=== PATIENT | female | born 1980 | race Caucasian/White ===

== ENCOUNTER 2020-03-22 13:47 | Inpatient (IN) | payer MEDICAID, OTHER ==
[~2020-03-22] VITALS: Ht 165.1 cm; Wt 74.0 kg
[2020-03-22] MEDS ORDERED: ARIP2 PO (14:53)
[2020-03-22 15:48] LABS: AMPHET/METH SCREEN,URINE NEGATIVE (NEGATIVE); BARBITURATE SCREEN, URINE NEGATIVE (NEGATIVE); BENZODIAZEPINES SCREEN,URINE NEGATIVE (NEGATIVE); CANNABINOID SCREEN,URINE NEGATIVE (NEGATIVE); COCAINE SCREEN,URINE NEGATIVE (NEGATIVE); METHADONE SCREEN, URINE NEGATIVE (NEGATIVE); OPIATE SCREEN,URINE NEGATIVE (NEGATIVE)
[2020-03-22 16:07] LABS: PHENCYCLIDINE SCREEN,URINE NEGATIVE (NEGATIVE)
[2020-03-22 16:24] LABS: BASOPHILS % (AUTO) 0.7 % (0.0-2.0); EOSINOPHILS % (AUTO) 0.6 % (1.0-6.0); HEMATOCRIT 42.1 % (36-46); HEMOGLOBIN 13.9 g/dL (12.0-16.0); LYMPHOCYTES # (AUTO) 2.8 K/uL (1.0-4.8); LYMPHOCYTES % (AUTO) 35.7 % (22.0-44.0); MEAN CORPUSCULAR HEMOGLOBIN 29.6 pg (26.0-34.0); MEAN CORPUSCULAR HGB CONC 33.1 G/dL (31.0-37.0); MEAN CORPUSCULAR VOLUME 90 fL (80-100); MONOCYTES # (AUTO) 0.5 K/uL (0.1-1.0); MONOCYTES % (AUTO) 6.5 % (2.0-9.0); NEUTROPHILS # (AUTO) 4.4 K/uL (1.8-7.7); NEUTROPHILS % (AUTO) 56.5 % (40.0-70.0); PLATELET COUNT (AUTO) 262 K/uL (150-450); RED CELL DISTRIBUTION WIDTH 12.7 % (11.5-14.5)
[2020-03-22 17:03] LABS: ANION GAP 10 mmol/L (8-16); CALCIUM, TOTAL 9.3 mg/dL (8.8-10.5); CARBON DIOXIDE 26 mmol/L (22-29); CHLORIDE 106 mmol/L (98-107); CREATININE 0.99 mg/dL (0.60-1.30); GLOMERULAR FILTR. RATE CALC > 60 mL/min (>60); GLUCOSE,RANDOM 96 mg/dL (70-110); POTASSIUM 3.9 mmol/L (3.5-5.1); SODIUM SERUM 142 mmol/L (136-145); UREA NITROGEN, BLOOD 17 mg/dL (7-18)
[2020-03-22 17:14] LABS: ALANINE AMINOTRANSFERASE 16 U/L (12-78); ALBUMIN 4.1 g/dL (3.4-5.0); ALKALINE PHOSPHATASE 79 U/L (46-116); ASPARTATE AMINOTRANSFERASE 11 U/L (15-37); BILIRUBIN,TOTAL 0.2 mg/dL (0.1-1.0); HCG,QUANTITATIVE < 1 mIU/mL (0-6)
[2020-03-22] MEDS ORDERED: LORazepam 2 MG TABLET PO ONE (18:00)
[2020-03-22] MEDS ORDERED: HALOPERIDOL 5 MG TABLET PO ONE (18:00)
[2020-03-22] MEDS ORDERED: PNEUMOCOCCAL VACCINE POLYVALENT 0.5 ML VIAL [PPSV23] IM ONE (21:00)
[2020-03-22 21:15] VITALS: BP 131/92
[2020-03-22] MEDS ORDERED: ChlorproMAZINE HCL 25 MG/ML 2 ML AMP IM ONE (22:00)
[2020-03-22] MEDS ORDERED: LORazepam 2 MG/ML VIAL IM ONE (22:00)
[2020-03-23] MEDS ORDERED: MAG HYDROX/AL HYDROX/SIMETH ES 30 ML SUSPENSION UDCUP PO PRN (07:15)
[2020-03-23] MEDS ORDERED: MAGNESIUM HYDROXIDE SUSPENSION 30 ML UDCUP PO PRN (07:15)
[2020-03-23] MEDS ORDERED: DOCUSATE SODIUM 100 MG CAPSULE PO PRN (07:15)
[2020-03-23] MEDS ORDERED: CloNIDine HCL 0.1 MG TABLET PO PRN (07:15)
[2020-03-23] MEDS ORDERED: BENZOCAINE/MENTHOL LOZENGE MM PRN (07:15)
[2020-03-23] MEDS ORDERED: PETROLATUM,WHITE 28 GM JELLY TP PRN (07:15)
[2020-03-23] MEDS ORDERED: BACITRACIN 28.4 GM OINTMENT TP PRN (07:15)
[2020-03-23] MEDS ORDERED: IBUPROFEN 600 MG TABLET PO PRN (07:15)
[2020-03-23] MEDS ORDERED: LOPERAMIDE HCL 2 MG CAPSULE PO PRN (07:15)
[2020-03-23] MEDS ORDERED: ALBUTEROL SULFATE HFA 90 MCG/PUFF 8 GM INHALER IH PRN (07:15)
[2020-03-23] MEDS ORDERED: OMEPRAZOLE 20 MG CAPSULE PO PRN (07:15)
[2020-03-23] MEDS ORDERED: ONDANSETRON HCL 4 MG TABLET PO PRN (07:15)
[2020-03-23 08:12] VITALS: BP 118/92
[2020-03-23] MEDS: ARIPiprazole 5 MG TABLET PO SCH (14:27)
[2020-03-23 17:04] VITALS: BP 115/66
[2020-03-24] MEDS: ARIPiprazole 5 MG TABLET PO SCH (08:23)
[2020-03-24 09:25] VITALS: BP 126/87
[2020-03-24] MEDS ORDERED: DiphenhydrAMINE HCL 50 MG/ML VIAL ONE (16:29)
[2020-03-24] MEDS ORDERED: HALOPERIDOL LACTATE 5 MG/ML VIAL ONE (16:29)
[2020-03-24] MEDS ORDERED: LORazepam 2 MG/ML VIAL ONE (16:29)
[2020-03-24] MEDS ORDERED: DiphenhydrAMINE HCL 50 MG/ML VIAL IM ONE (16:30)
[2020-03-24] MEDS ORDERED: LORazepam 2 MG/ML VIAL IM ONE (16:30)
[2020-03-24] MEDS ORDERED: HALOPERIDOL LACTATE 5 MG/ML VIAL IM ONE (16:30)
[2020-03-24 16:49] VITALS: BP 110/66
[2020-03-25] MEDS: ARIPiprazole 5 MG TABLET PO SCH (08:36)
[2020-03-25 10:51] VITALS: BP 133/76
[2020-03-25 16:05] VITALS: BP 136/84
[2020-03-25] MEDS: LITHIUM CARBONATE 300 MG CAPSULE PO SCH (17:01)
[2020-03-25] MEDS: LORazepam 2 MG TABLET PO PRN (19:46)
[2020-03-26] MEDS: HALOPERIDOL 5 MG TABLET PO PRN (03:24)
[2020-03-26] MEDS: LORazepam 2 MG TABLET PO PRN ×2 (03:24→18:46)
[2020-03-26] MEDS: ARIPiprazole 15 MG TABLET PO SCH (08:29)
[2020-03-26] MEDS: LITHIUM CARBONATE 300 MG CAPSULE PO SCH ×2 (08:29→17:16)
[2020-03-26 10:25] VITALS: BP 136/81
[2020-03-26 16:00] VITALS: BP 100/70
[2020-03-26] MEDS: ZOLPIDEM TARTRATE 10 MG TABLET PO PRN (20:26)
[2020-03-27] MEDS: ARIPiprazole 15 MG TABLET PO SCH (08:07)
[2020-03-27] MEDS: LITHIUM CARBONATE 300 MG CAPSULE PO SCH ×2 (08:07→16:06)
[2020-03-27 08:54] VITALS: BP 122/74
[2020-03-27] MEDS ORDERED: DiphenhydrAMINE HCL 50 MG/ML VIAL IM ONE (09:15)
[2020-03-27] MEDS ORDERED: HALOPERIDOL LACTATE 5 MG/ML VIAL IM ONE (09:15)
[2020-03-27] MEDS ORDERED: LORazepam 2 MG/ML VIAL IM ONE (09:15)
[2020-03-27 16:39] VITALS: BP 145/81
[2020-03-27 16:50] VITALS: BP 148/81
[2020-03-28 04:00] VITALS: BP 127/76
[2020-03-28 06:00] VITALS: BP 107/63
[2020-03-28] MEDS: ARIPiprazole 15 MG TABLET PO SCH (08:48)
[2020-03-28] MEDS: LITHIUM CARBONATE 300 MG CAPSULE PO SCH ×2 (08:49→16:01)
[2020-03-28] MEDS: HALOPERIDOL 5 MG TABLET PO PRN (08:49)
[2020-03-28 16:35] VITALS: BP 105/59
[2020-03-29] MEDS: ZOLPIDEM TARTRATE 10 MG TABLET PO PRN (00:16)
[2020-03-29 02:45] VITALS: BP 117/81
[2020-03-29] MEDS: LITHIUM CARBONATE 300 MG CAPSULE PO SCH (07:46)
[2020-03-29] MEDS: ARIPiprazole 15 MG TABLET PO SCH (07:46)
[2020-03-29] MEDS ORDERED: LITH300C3 PO (10:48)
== END 2020-03-29 14:00 | disposition home or self-care (01) | DRG 885 ==
LOC: EMS 13:51 → 3EI 18:42 → 3EC 23:39
PROVIDERS: ADMIT Psychiatry & Neurology Psychiatry; ATTEND Psychiatry & Neurology Psychiatry
DX: F31.9 Bipolar disorder, unspecified (principal); F41.9 Anxiety disorder, unspecified; G47.00 Insomnia, unspecified; K59.00 Constipation, unspecified; R00.0 Tachycardia, unspecified; F22 Delusional disorders; Z59.0 Homelessness; Z56.0 Unemployment, unspecified
CPT/HCPCS: G0480; J1200; J1630; J2060; J3230

== ENCOUNTER 2020-04-10 05:56 | Inpatient (IN) | payer MEDICAID ==
[~2020-04-10] VITALS: Ht 162.6 cm; Wt 83.9 kg
[~2020-04-10 05:56] MED LIST: ARIP2 PO; LITH300C3 PO
[2020-04-10 12:34] VITALS: BP 93/64
[2020-04-10] MEDS ORDERED: ARIP15TA2 PO (12:34)
[2020-04-10 16:16] VITALS: BP 106/59
[2020-04-10] MEDS: LITHIUM CARBONATE 300 MG CAPSULE PO SCH (16:58)
[2020-04-10] MEDS: ZOLPIDEM TARTRATE 10 MG TABLET PO PRN (21:11)
[2020-04-11 03:08] VITALS: BP 101/66
[2020-04-11 07:28] LABS: BASOPHILS % (AUTO) 0.9 % (0.0-2.0); EOSINOPHILS % (AUTO) 2.1 % (1.0-6.0); HEMATOCRIT 38.2 % (36-46); LYMPHOCYTES # (AUTO) 2.3 K/uL (1.0-4.8); LYMPHOCYTES % (AUTO) 40.7 % (22.0-44.0); MEAN CORPUSCULAR HEMOGLOBIN 30.6 pg (26.0-34.0); MEAN CORPUSCULAR HGB CONC 34.1 G/dL (31.0-37.0); MEAN CORPUSCULAR VOLUME 90 fL (80-100); MONOCYTES # (AUTO) 0.5 K/uL (0.1-1.0); MONOCYTES % (AUTO) 8.6 % (2.0-9.0); NEUTROPHILS # (AUTO) 2.8 K/uL (1.8-7.7); NEUTROPHILS % (AUTO) 47.7 % (40.0-70.0); PLATELET COUNT (AUTO) 220 K/uL (150-450); RED BLOOD CELL COUNT(AUTO) 4.26 MIL/uL (4.00-5.20)
[2020-04-11 07:58] LABS: ALANINE AMINOTRANSFERASE 17 U/L (12-78); ALBUMIN 3.2 g/dL (3.4-5.0); ALKALINE PHOSPHATASE 66 U/L (46-116); ANION GAP 9 mmol/L (8-16); ASPARTATE AMINOTRANSFERASE 16 U/L (15-37); BILIRUBIN,TOTAL 0.4 mg/dL (0.1-1.0); CALCIUM, TOTAL 8.7 mg/dL (8.8-10.5); CARBON DIOXIDE 25 mmol/L (22-29); CHLORIDE 103 mmol/L (98-107); CREATININE 0.94 mg/dL (0.60-1.30); FREE T4 (FREE THYROXINE) 0.89 ng/dL (0.76-1.46); GLOMERULAR FILTR. RATE CALC > 60 mL/min (>60); GLUCOSE,RANDOM 116 mg/dL (70-110); HCG,QUANTITATIVE < 1 mIU/mL (0-6); POTASSIUM 3.9 mmol/L (3.5-5.1); SODIUM SERUM 137 mmol/L (136-145); THYROID STIMULATING HORMONE 0.64 uIU/mL (0.36-3.74); TOTAL PROTEIN, SERUM 5.8 g/dL (6.4-8.2); UREA NITROGEN, BLOOD 14 mg/dL (7-18)
[2020-04-11 08:10] LABS: AMPHET/METH SCREEN,URINE NEGATIVE (NEGATIVE); BARBITURATE SCREEN, URINE NEGATIVE (NEGATIVE); BENZODIAZEPINES SCREEN,URINE NEGATIVE (NEGATIVE); CANNABINOID SCREEN,URINE NEGATIVE (NEGATIVE); COCAINE SCREEN,URINE NEGATIVE (NEGATIVE); METHADONE SCREEN, URINE NEGATIVE (NEGATIVE); OPIATE SCREEN,URINE NEGATIVE (NEGATIVE)
[2020-04-11 08:14] LABS: APPEARANCE,URINE TURBID (CLEAR); BILIRUBIN,URINE NEGATIVE (NEGATIVE); GLUCOSE, URINE (UA) NEGATIVE (NEGATIVE); KETONES,URINE NEGATIVE (NEGATIVE); LEUKOCYTE ESTERASE ,URINE NEGATIVE (NEGATIVE); NITRATE,URINE NEGATIVE (NEGATIVE); OCCULT BLOOD,URINE NEGATIVE (NEGATIVE); PROTEIN,URINE NEGATIVE (NEGATIVE)
[2020-04-11 08:17] LABS: PHENCYCLIDINE SCREEN,URINE NEGATIVE (NEGATIVE)
[2020-04-11 08:27] VITALS: BP 122/84
[2020-04-11] MEDS ORDERED: OMEPRAZOLE 20 MG CAPSULE PO PRN (08:30)
[2020-04-11] MEDS ORDERED: MAGNESIUM HYDROXIDE SUSPENSION 30 ML UDCUP PO PRN (08:30)
[2020-04-11] MEDS ORDERED: ONDANSETRON HCL 4 MG TABLET PO PRN (08:30)
[2020-04-11] MEDS ORDERED: PETROLATUM,WHITE 28 GM JELLY TP PRN (08:30)
[2020-04-11] MEDS ORDERED: LOPERAMIDE HCL 2 MG CAPSULE PO PRN (08:30)
[2020-04-11] MEDS ORDERED: DOCUSATE SODIUM 100 MG CAPSULE PO PRN (08:30)
[2020-04-11] MEDS ORDERED: BENZOCAINE/MENTHOL LOZENGE MM PRN (08:30)
[2020-04-11] MEDS ORDERED: MAG HYDROX/AL HYDROX/SIMETH ES 30 ML SUSPENSION UDCUP PO PRN (08:30)
[2020-04-11] MEDS ORDERED: CloNIDine HCL 0.1 MG TABLET PO PRN (08:30)
[2020-04-11] MEDS ORDERED: BACITRACIN 28 GM OINTMENT TP PRN (08:30)
[2020-04-11] MEDS: ARIPiprazole 15 MG TABLET PO SCH (08:38)
[2020-04-11] MEDS: LITHIUM CARBONATE 300 MG CAPSULE PO SCH ×2 (08:38→16:35)
[2020-04-11 16:10] VITALS: BP 106/67
[2020-04-11] MEDS: ZOLPIDEM TARTRATE 10 MG TABLET PO PRN (20:40)
[2020-04-12 05:08] VITALS: BP 99/68
[2020-04-12 08:29] VITALS: BP 121/84
[2020-04-12] MEDS: LITHIUM CARBONATE 300 MG CAPSULE PO SCH (08:36)
[2020-04-12] MEDS: ARIPiprazole 15 MG TABLET PO SCH (08:36)
[2020-04-12 16:16] VITALS: BP 100/60
[2020-04-12] MEDS: ZOLPIDEM TARTRATE 10 MG TABLET PO PRN (20:13)
[2020-04-13 00:05] VITALS: BP 120/80
[2020-04-13] MEDS: ARIPiprazole 15 MG TABLET PO SCH (08:10)
[2020-04-13] MEDS: LORazepam 2 MG TABLET PO PRN (15:44)
[2020-04-13 16:57] VITALS: BP 115/73
[2020-04-13] MEDS: ZOLPIDEM TARTRATE 10 MG TABLET PO PRN (20:49)
[2020-04-14 03:57] VITALS: BP 101/73
[2020-04-14 08:21] VITALS: BP 121/84
[2020-04-14] MEDS: LORazepam 2 MG TABLET PO PRN (08:48)
[2020-04-14] MEDS: ARIPiprazole 15 MG TABLET PO SCH (08:48)
[2020-04-14] MEDS: ZOLPIDEM TARTRATE 10 MG TABLET PO PRN (20:22)
[2020-04-15 06:01] VITALS: BP 120/80
[2020-04-15 08:16] VITALS: BP 119/63
[2020-04-15] MEDS: ARIPiprazole 15 MG TABLET PO SCH (08:32)
[2020-04-15] MEDS: LORazepam 2 MG TABLET PO PRN (12:53)
[2020-04-15 16:39] VITALS: BP 142/68
[2020-04-15] MEDS: ZOLPIDEM TARTRATE 10 MG TABLET PO PRN (21:51)
[2020-04-16 04:12] VITALS: BP 100/61
[2020-04-16 08:24] VITALS: BP 134/95
[2020-04-16] MEDS: ARIPiprazole 15 MG TABLET PO SCH (09:03)
[2020-04-16] MEDS: LORazepam 2 MG TABLET PO PRN (09:03)
[2020-04-16 16:16] VITALS: BP 124/60
[2020-04-16] MEDS: ZOLPIDEM TARTRATE 10 MG TABLET PO PRN (20:16)
[2020-04-17] VITALS: BP 122/69
[2020-04-17] MEDS: LORazepam 2 MG TABLET PO PRN ×2 (08:08→16:22)
[2020-04-17] MEDS: ARIPiprazole 15 MG TABLET PO SCH (08:08)
[2020-04-17 08:30] VITALS: BP 116/84
[2020-04-17 16:45] VITALS: BP 111/72
[2020-04-18] MEDS: ZOLPIDEM TARTRATE 10 MG TABLET PO PRN (02:12)
[2020-04-18 02:38] VITALS: BP 122/76
[2020-04-18] MEDS: LORazepam 2 MG TABLET PO PRN ×2 (07:54→14:01)
[2020-04-18] MEDS: ARIPiprazole 15 MG TABLET PO SCH (08:06)
[2020-04-18 11:18] VITALS: BP 99/54
[2020-04-18] MEDS: ALBUTEROL SULFATE HFA 90 MCG/PUFF 8 GM INHALER IH PRN (13:49)
[2020-04-18 16:18] VITALS: BP 104/64
[2020-04-19 01:35] VITALS: BP 116/72
[2020-04-19 08:15] VITALS: BP 116/68
[2020-04-19] MEDS: ARIPiprazole 15 MG TABLET PO SCH (08:25)
[2020-04-19] MEDS: LORazepam 2 MG TABLET PO PRN ×2 (09:36→16:03)
[2020-04-19 16:15] VITALS: BP 100/70
[2020-04-20 00:15] VITALS: BP 121/69
[2020-04-20] MEDS: ARIPiprazole 15 MG TABLET PO SCH (08:25)
[2020-04-20] MEDS: LORazepam 2 MG TABLET PO PRN (08:25)
[2020-04-20 08:33] VITALS: BP 111/68
[2020-04-20] MEDS ORDERED: HALOPERIDOL LACTATE 5 MG/ML VIAL ONE (12:22)
[2020-04-20] MEDS ORDERED: LORazepam 2 MG/ML VIAL ONE (12:23)
[2020-04-20] MEDS ORDERED: DiphenhydrAMINE HCL 50 MG/ML VIAL ONE (12:23)
[2020-04-20] MEDS ORDERED: LORazepam 2 MG/ML VIAL IM ONE (12:45)
[2020-04-20] MEDS ORDERED: HALOPERIDOL LACTATE 5 MG/ML VIAL IM ONE (12:45)
[2020-04-20] MEDS ORDERED: DiphenhydrAMINE HCL 50 MG/ML VIAL IM ONE (12:45)
[2020-04-20] MEDS: ZOLPIDEM TARTRATE 10 MG TABLET PO PRN (20:19)
[2020-04-21 01:41] VITALS: BP 137/75
[2020-04-21] MEDS: ARIPiprazole 15 MG TABLET PO SCH (08:04)
[2020-04-21] MEDS: LORazepam 2 MG TABLET PO PRN (08:04)
[2020-04-21 08:33] VITALS: BP 135/81
[2020-04-21 16:26] VITALS: BP 111/71
[2020-04-21] MEDS: ZOLPIDEM TARTRATE 10 MG TABLET PO PRN (20:16)
[2020-04-22 00:04] VITALS: BP 130/86
[2020-04-22] MEDS ORDERED: DiphenhydrAMINE HCL 50 MG/ML VIAL IM ONE (03:30)
[2020-04-22] MEDS ORDERED: HALOPERIDOL LACTATE 5 MG/ML VIAL IM ONE (03:30)
[2020-04-22] MEDS ORDERED: LORazepam 2 MG/ML VIAL IM ONE (03:30)
[2020-04-22] MEDS: ARIPiprazole 15 MG TABLET PO SCH (08:26)
[2020-04-22 09:43] VITALS: BP 102/58
[2020-04-22 20:58] VITALS: BP 126/72
[2020-04-23 04:10] VITALS: BP 103/60
[2020-04-23] MEDS: ARIPiprazole 15 MG TABLET PO SCH (08:27)
[2020-04-23] MEDS: LORazepam 2 MG TABLET PO PRN ×2 (08:27→16:13)
[2020-04-23 10:33] VITALS: BP 113/64
[2020-04-23] MEDS: IBUPROFEN 600 MG TABLET PO PRN (11:13)
[2020-04-23 16:27] VITALS: BP 101/58
[2020-04-24 01:02] VITALS: BP 98/63
[2020-04-24] MEDS: LORazepam 2 MG TABLET PO PRN (08:56)
[2020-04-24] MEDS: ARIPiprazole 15 MG TABLET PO SCH (08:56)
[2020-04-24 17:20] VITALS: BP 104/60
[2020-04-24] MEDS: ZOLPIDEM TARTRATE 10 MG TABLET PO PRN (22:20)
[2020-04-25 02:27] VITALS: BP 100/67
[2020-04-25 08:21] VITALS: BP 119/78
[2020-04-25] MEDS: ARIPiprazole 15 MG TABLET PO SCH (08:31)
[2020-04-25] MEDS: LORazepam 2 MG TABLET PO PRN ×2 (08:31→16:19)
[2020-04-25 17:15] VITALS: BP 114/70
[2020-04-25] MEDS: ZOLPIDEM TARTRATE 10 MG TABLET PO PRN (20:45)
[2020-04-26 04:08] VITALS: BP 116/76
[2020-04-26] MEDS: LORazepam 2 MG TABLET PO PRN ×2 (08:14→14:43)
[2020-04-26] MEDS: ARIPiprazole 15 MG TABLET PO SCH (08:14)
[2020-04-26 08:28] VITALS: BP 116/81
[2020-04-26 16:17] VITALS: BP 100/68
[2020-04-27] MEDS: IBUPROFEN 600 MG TABLET PO PRN (01:53)
[2020-04-27 04:46] VITALS: BP 101/74
[2020-04-27 08:26] VITALS: BP 102/69
[2020-04-27] MEDS: ARIPiprazole 15 MG TABLET PO SCH (08:29)
[2020-04-27] MEDS: LORazepam 2 MG TABLET PO PRN ×2 (08:29→18:14)
[2020-04-27 17:30] VITALS: BP 110/70
[2020-04-28 02:44] VITALS: BP 108/71
[2020-04-28 08:27] VITALS: BP 129/58
[2020-04-28] MEDS: ARIPiprazole 15 MG TABLET PO SCH (08:34)
[2020-04-28] MEDS: LORazepam 2 MG TABLET PO PRN (15:53)
[2020-04-28 16:26] VITALS: BP 117/67
[2020-04-28] MEDS: ZOLPIDEM TARTRATE 10 MG TABLET PO PRN (22:42)
[2020-04-29 00:15] VITALS: BP 114/60
[2020-04-29] MEDS: LORazepam 2 MG TABLET PO PRN ×2 (08:19→14:38)
[2020-04-29] MEDS: ARIPiprazole 15 MG TABLET PO SCH (08:19)
[2020-04-29 08:29] VITALS: BP_SYST 123
[2020-04-29 17:19] VITALS: BP 132/70
[2020-04-30 01:29] VITALS: BP 122/84
[2020-04-30] MEDS: LORazepam 2 MG TABLET PO PRN ×2 (08:28→20:33)
[2020-04-30] MEDS: ARIPiprazole 15 MG TABLET PO SCH (08:28)
[2020-04-30 08:34] VITALS: BP 118/71
[2020-04-30] MEDS ORDERED: NICOTINE 21 MG/24 HOUR PATCH TD SCH (14:00)
[2020-04-30] MEDS: NICOTINE 21 MG/24 HOUR PATCH TD SCH (14:07)
[2020-04-30 16:26] VITALS: BP 105/60
[2020-05-01 02:12] VITALS: BP 114/77
[2020-05-01] MEDS: NICOTINE 21 MG/24 HOUR PATCH TD SCH (08:05)
[2020-05-01] MEDS: ARIPiprazole 15 MG TABLET PO SCH (08:06)
[2020-05-01] MEDS: LORazepam 2 MG TABLET PO PRN (08:06)
[2020-05-01 08:26] VITALS: BP 108/72
[2020-05-01] MEDS ORDERED: NICOTINE 21 MG/24 HOUR PATCH TD SCH (09:00)
[2020-05-01] MEDS ORDERED: LORazepam 2 MG/ML VIAL ONE (12:21)
[2020-05-01] MEDS ORDERED: DiphenhydrAMINE HCL 50 MG/ML VIAL ONE (12:21)
[2020-05-01] MEDS ORDERED: HALOPERIDOL LACTATE 5 MG/ML VIAL ONE (12:21)
[2020-05-01] MEDS ORDERED: DiphenhydrAMINE HCL 50 MG/ML VIAL IM ONE (12:30)
[2020-05-01] MEDS ORDERED: HALOPERIDOL LACTATE 5 MG/ML VIAL IM ONE (12:30)
[2020-05-01] MEDS ORDERED: LORazepam 2 MG/ML VIAL IM ONE (12:30)
[2020-05-02 02:02] VITALS: BP 101/82
[2020-05-02] MEDS: NICOTINE 21 MG/24 HOUR PATCH TD SCH (08:01)
[2020-05-02] MEDS: LORazepam 2 MG TABLET PO PRN ×2 (08:01→19:42)
[2020-05-02] MEDS: ARIPiprazole 15 MG TABLET PO SCH (08:01)
[2020-05-02 08:08] VITALS: BP 132/80
[2020-05-02 17:49] VITALS: BP 126/61
[2020-05-03 01:41] VITALS: BP 120/70
[2020-05-03 08:24] VITALS: BP 118/79
[2020-05-03] MEDS: NICOTINE 21 MG/24 HOUR PATCH TD SCH (08:49)
[2020-05-03] MEDS: ARIPiprazole 15 MG TABLET PO SCH (08:49)
[2020-05-03] MEDS: LORazepam 2 MG TABLET PO PRN ×2 (08:49→16:35)
[2020-05-03 16:28] VITALS: BP 125/63
[2020-05-04] VITALS: BP 120/72
[2020-05-04] MEDS: LORazepam 2 MG TABLET PO PRN (08:06)
[2020-05-04] MEDS: ARIPiprazole 15 MG TABLET PO SCH (08:06)
[2020-05-04] MEDS: NICOTINE 21 MG/24 HOUR PATCH TD SCH (08:06)
[2020-05-04 08:50] VITALS: BP 106/68
[2020-05-04 17:20] VITALS: BP 124/76
[2020-05-05 01:36] VITALS: BP 120/78
[2020-05-05] MEDS: LORazepam 2 MG TABLET PO PRN ×2 (02:06→08:21)
[2020-05-05] MEDS: ARIPiprazole 15 MG TABLET PO SCH (08:22)
[2020-05-05] MEDS: NICOTINE 21 MG/24 HOUR PATCH TD SCH ×2 (08:23→16:18)
[2020-05-05 08:27] VITALS: BP 112/66
[2020-05-05 16:15] VITALS: BP 116/69
[2020-05-06] MEDS: LORazepam 2 MG TABLET PO PRN ×3 (00:25→21:14)
[2020-05-06 00:46] VITALS: BP 119/80
[2020-05-06] MEDS: ARIPiprazole 15 MG TABLET PO SCH (08:00)
[2020-05-06 08:06] VITALS: BP 130/80
[2020-05-07 03:04] VITALS: BP 106/67
[2020-05-07 08:19] VITALS: BP 135/67
[2020-05-07] MEDS: ARIPiprazole 15 MG TABLET PO SCH (09:05)
[2020-05-07] MEDS: NICOTINE 21 MG/24 HOUR PATCH TD SCH (09:05)
[2020-05-07] MEDS: LORazepam 2 MG TABLET PO PRN ×2 (10:47→18:27)
[2020-05-07 16:32] VITALS: BP 133/90
[2020-05-08 02:49] VITALS: BP 128/88
[2020-05-08 08:18] VITALS: BP 112/78
[2020-05-08] MEDS: LORazepam 2 MG TABLET PO PRN ×2 (08:20→17:53)
[2020-05-08] MEDS: ARIPiprazole 15 MG TABLET PO SCH (08:20)
[2020-05-08] MEDS: NICOTINE 21 MG/24 HOUR PATCH TD SCH (08:22)
[2020-05-08] MEDS ORDERED: TUBERCULIN, PURIFIED PROTEIN DERIVATIVE 5 TU/0.1 ML SYRINGE ID ONE (12:30)
[2020-05-09 01:22] VITALS: BP 108/84
[2020-05-09] MEDS: LORazepam 2 MG TABLET PO PRN ×2 (03:52→09:27)
[2020-05-09 08:20] VITALS: BP 119/78
[2020-05-09] MEDS: ARIPiprazole 15 MG TABLET PO SCH (09:26)
[2020-05-09] MEDS: NICOTINE 21 MG/24 HOUR PATCH TD SCH (09:27)
[2020-05-09 17:27] VITALS: BP 127/76
[2020-05-09] MEDS: MELATONIN 5 MG TABLET PO PRN (22:13)
[2020-05-10] MEDS: LORazepam 2 MG TABLET PO PRN ×2 (03:08→08:18)
[2020-05-10 04:18] VITALS: BP 123/71
[2020-05-10] MEDS: ARIPiprazole 15 MG TABLET PO SCH (08:18)
[2020-05-10] MEDS: NICOTINE 21 MG/24 HOUR PATCH TD SCH (08:18)
[2020-05-10 08:35] VITALS: BP 109/66
[2020-05-10 16:41] VITALS: BP 120/72
[2020-05-11 01:28] VITALS: BP 114/80
[2020-05-11 08:37] VITALS: BP 110/68
[2020-05-11] MEDS: LORazepam 2 MG TABLET PO PRN (08:47)
[2020-05-11] MEDS: ARIPiprazole 15 MG TABLET PO SCH (08:47)
[2020-05-11] MEDS: NICOTINE 21 MG/24 HOUR PATCH TD SCH (08:47)
[2020-05-11 16:42] VITALS: BP 134/89
[2020-05-12 05:34] VITALS: BP 123/83
[2020-05-12] MEDS: LORazepam 2 MG TABLET PO PRN ×2 (08:02→16:08)
[2020-05-12] MEDS: NICOTINE 21 MG/24 HOUR PATCH TD SCH (08:02)
[2020-05-12] MEDS: ARIPiprazole 15 MG TABLET PO SCH (08:02)
[2020-05-12 08:13] VITALS: BP 104/59
[2020-05-12] MEDS: HALOPERIDOL 5 MG TABLET PO PRN (12:21)
[2020-05-12 16:00] VITALS: BP 139/89
[2020-05-13 04:49] VITALS: BP 136/62
[2020-05-13 08:13] VITALS: BP 109/71
[2020-05-13] MEDS: LORazepam 2 MG TABLET PO PRN ×2 (08:13→13:43)
[2020-05-13] MEDS: NICOTINE 21 MG/24 HOUR PATCH TD SCH (08:13)
[2020-05-13] MEDS: ARIPiprazole 15 MG TABLET PO SCH (08:13)
[2020-05-13 16:33] VITALS: BP 122/80
[2020-05-13] MEDS: MELATONIN 5 MG TABLET PO PRN (20:49)
[2020-05-14 03:26] VITALS: BP 113/89
[2020-05-14] MEDS: LORazepam 2 MG TABLET PO PRN ×2 (08:18→16:39)
[2020-05-14] MEDS: NICOTINE 21 MG/24 HOUR PATCH TD SCH (08:18)
[2020-05-14] MEDS: ARIPiprazole 15 MG TABLET PO SCH (08:18)
[2020-05-14 08:19] VITALS: BP 120/70
[2020-05-14 16:24] VITALS: BP 108/82
[2020-05-15 00:53] VITALS: BP 104/80
[2020-05-15] MEDS: ARIPiprazole 15 MG TABLET PO SCH (08:19)
[2020-05-15] MEDS: NICOTINE 21 MG/24 HOUR PATCH TD SCH (08:19)
[2020-05-15] MEDS: LORazepam 2 MG TABLET PO PRN ×2 (08:19→12:44)
[2020-05-15 08:21] VITALS: BP 118/79
[2020-05-15 17:09] VITALS: BP 118/85
[2020-05-16 00:47] VITALS: BP 116/80
[2020-05-16] MEDS: LORazepam 2 MG TABLET PO PRN ×4 (01:43→20:09)
[2020-05-16 08:14] VITALS: BP 97/60
[2020-05-16] MEDS: NICOTINE 21 MG/24 HOUR PATCH TD SCH (08:15)
[2020-05-16] MEDS: ARIPiprazole 15 MG TABLET PO SCH (08:15)
[2020-05-16 09:30] VITALS: BP 128/77
[2020-05-16 17:15] VITALS: BP 137/79
[2020-05-17 01:33] VITALS: BP 113/85
[2020-05-17 08:11] VITALS: BP 130/82
[2020-05-17] MEDS: ARIPiprazole 15 MG TABLET PO SCH (08:34)
[2020-05-17] MEDS: LORazepam 2 MG TABLET PO PRN ×2 (08:34→16:13)
[2020-05-17] MEDS: NICOTINE 21 MG/24 HOUR PATCH TD SCH (08:35)
[2020-05-17 16:06] VITALS: BP 110/68
[2020-05-17] MEDS: MELATONIN 5 MG TABLET PO PRN (20:48)
[2020-05-18 02:18] VITALS: BP 125/72
[2020-05-18] MEDS: LORazepam 2 MG TABLET PO PRN ×2 (03:58→08:10)
[2020-05-18] MEDS: ARIPiprazole 15 MG TABLET PO SCH (08:08)
[2020-05-18] MEDS: NICOTINE 21 MG/24 HOUR PATCH TD SCH (08:10)
[2020-05-18 08:20] VITALS: BP 121/90
[2020-05-18 16:08] VITALS: BP 127/90
[2020-05-18] MEDS: MELATONIN 5 MG TABLET PO PRN (20:45)
[2020-05-19 05:14] VITALS: BP 112/73
[2020-05-19 08:24] VITALS: BP 100/61
[2020-05-19] MEDS: ARIPiprazole 15 MG TABLET PO SCH (08:27)
[2020-05-19 08:30] VITALS: BP 112/70
[2020-05-19] MEDS: LORazepam 2 MG TABLET PO PRN ×2 (08:36→17:40)
[2020-05-19] MEDS: NICOTINE 21 MG/24 HOUR PATCH TD SCH (08:36)
[2020-05-19 16:22] VITALS: BP 114/74
[2020-05-19] MEDS: ALBUTEROL SULFATE HFA 90 MCG/PUFF 8 GM INHALER IH PRN (17:48)
[2020-05-19] MEDS: MELATONIN 5 MG TABLET PO PRN (21:24)
[2020-05-20 01:23] VITALS: BP 110/76
[2020-05-20] MEDS: NICOTINE 21 MG/24 HOUR PATCH TD SCH (08:01)
[2020-05-20] MEDS: ARIPiprazole 15 MG TABLET PO SCH (08:02)
[2020-05-20 08:43] VITALS: BP 134/84
[2020-05-20 16:19] VITALS: BP 116/76
[2020-05-20] MEDS: MELATONIN 5 MG TABLET PO PRN (20:39)
[2020-05-20 23:46] VITALS: BP 126/53
[2020-05-21] VITALS: BP 126/53
[2020-05-21] MEDS: NICOTINE 21 MG/24 HOUR PATCH TD SCH (08:04)
[2020-05-21] MEDS: HALOPERIDOL 5 MG TABLET PO PRN ×2 (08:05→20:18)
[2020-05-21] MEDS: ARIPiprazole 15 MG TABLET PO SCH (08:05)
[2020-05-21 08:39] VITALS: BP 100/59
[2020-05-21 16:48] VITALS: BP 124/94
[2020-05-21] MEDS: MELATONIN 5 MG TABLET PO PRN (20:20)
[2020-05-22 00:09] VITALS: BP 118/80
[2020-05-22] MEDS ORDERED: DiphenhydrAMINE HCL 50 MG/ML VIAL ONE (02:06)
[2020-05-22] MEDS ORDERED: HALOPERIDOL LACTATE 5 MG/ML VIAL ONE (02:06)
[2020-05-22] MEDS ORDERED: LORazepam 2 MG/ML VIAL ONE (02:06)
[2020-05-22] MEDS ORDERED: DiphenhydrAMINE HCL 50 MG/ML VIAL IM ONE (02:15)
[2020-05-22] MEDS ORDERED: HALOPERIDOL LACTATE 5 MG/ML VIAL IM ONE (02:15)
[2020-05-22] MEDS ORDERED: LORazepam 2 MG/ML VIAL IM ONE (02:15)
[2020-05-22 08:17] VITALS: BP 110/76
[2020-05-22] MEDS: ARIPiprazole 15 MG TABLET PO SCH ×2 (08:32→09:21)
[2020-05-22] MEDS: NICOTINE 21 MG/24 HOUR PATCH TD SCH ×2 (08:32→09:22)
[2020-05-22] MEDS: ALBUTEROL SULFATE HFA 90 MCG/PUFF 8 GM INHALER IH PRN (13:36)
[2020-05-23 00:34] VITALS: BP 120/70
[2020-05-23 08:23] VITALS: BP 106/62
[2020-05-23] MEDS: ARIPiprazole 15 MG TABLET PO SCH (10:20)
[2020-05-23] MEDS: NICOTINE 21 MG/24 HOUR PATCH TD SCH (10:26)
[2020-05-23 16:10] VITALS: BP 113/61
[2020-05-23] MEDS: MELATONIN 5 MG TABLET PO PRN (21:10)
[2020-05-24 00:52] VITALS: BP 102/68
[2020-05-24 08:30] VITALS: BP 112/72
[2020-05-24] MEDS: ARIPiprazole 15 MG TABLET PO SCH (09:59)
[2020-05-24] MEDS: NICOTINE 21 MG/24 HOUR PATCH TD SCH (10:00)
[2020-05-24] MEDS: ALBUTEROL SULFATE HFA 90 MCG/PUFF 8 GM INHALER IH PRN (14:53)
[2020-05-24 16:21] VITALS: BP 104/62
[2020-05-24] MEDS: MELATONIN 5 MG TABLET PO PRN (20:48)
[2020-05-25 00:45] VITALS: BP 100/66
[2020-05-25 08:22] VITALS: BP 110/63
[2020-05-25] MEDS: ARIPiprazole 15 MG TABLET PO SCH (09:02)
[2020-05-25] MEDS: NICOTINE 21 MG/24 HOUR PATCH TD SCH (09:02)
[2020-05-25] MEDS: ALBUTEROL SULFATE HFA 90 MCG/PUFF 8 GM INHALER IH PRN ×2 (09:29→18:46)
[2020-05-25 16:09] VITALS: BP 117/58
[2020-05-25] MEDS: MELATONIN 5 MG TABLET PO PRN (22:06)
[2020-05-26 06:36] VITALS: BP 139/80
[2020-05-26 06:39] VITALS: BP 110/70
[2020-05-26] MEDS: NICOTINE 21 MG/24 HOUR PATCH TD SCH (08:11)
[2020-05-26] MEDS: ARIPiprazole 15 MG TABLET PO SCH (08:11)
[2020-05-26 08:28] VITALS: BP 128/75
[2020-05-26] MEDS: ALBUTEROL SULFATE HFA 90 MCG/PUFF 8 GM INHALER IH PRN (13:51)
[2020-05-26 16:16] VITALS: BP 126/71
[2020-05-26] MEDS: MELATONIN 5 MG TABLET PO PRN (20:59)
[2020-05-27 00:31] VITALS: BP 116/68
[2020-05-27] MEDS: ARIPiprazole 15 MG TABLET PO SCH (08:24)
[2020-05-27] MEDS: NICOTINE 21 MG/24 HOUR PATCH TD SCH (08:24)
[2020-05-27 08:41] VITALS: BP 117/64
[2020-05-27] MEDS: HALOPERIDOL 5 MG TABLET PO PRN (14:42)
[2020-05-27 16:23] VITALS: BP 123/60
[2020-05-27] MEDS: ALBUTEROL SULFATE HFA 90 MCG/PUFF 8 GM INHALER IH PRN (17:52)
[2020-05-27] MEDS: MELATONIN 5 MG TABLET PO PRN (20:24)
[2020-05-28 00:22] VITALS: BP 114/67
[2020-05-28] MEDS: NICOTINE 21 MG/24 HOUR PATCH TD SCH (08:18)
[2020-05-28] MEDS: ARIPiprazole 15 MG TABLET PO SCH (08:20)
[2020-05-28 08:21] VITALS: BP 119/80
[2020-05-28] MEDS: ALBUTEROL SULFATE HFA 90 MCG/PUFF 8 GM INHALER IH PRN ×2 (08:28→16:21)
[2020-05-28 16:24] VITALS: BP 112/74
[2020-05-28] MEDS: MELATONIN 5 MG TABLET PO PRN (20:19)
[2020-05-29 00:59] VITALS: BP 102/68
[2020-05-29] MEDS: ARIPiprazole 15 MG TABLET PO SCH (08:11)
[2020-05-29] MEDS: NICOTINE 21 MG/24 HOUR PATCH TD SCH (08:11)
[2020-05-29 08:22] VITALS: BP 118/76
[2020-05-29 16:11] VITALS: BP 107/72
[2020-05-29] MEDS: MELATONIN 5 MG TABLET PO PRN (20:53)
[2020-05-30 02:54] VITALS: BP 120/77
[2020-05-30] MEDS: NICOTINE 21 MG/24 HOUR PATCH TD SCH (08:04)
[2020-05-30] MEDS: ARIPiprazole 15 MG TABLET PO SCH (08:04)
[2020-05-30 08:14] VITALS: BP 106/61
[2020-05-30] MEDS: ALBUTEROL SULFATE HFA 90 MCG/PUFF 8 GM INHALER IH PRN (08:51)
[2020-05-30 16:17] VITALS: BP 132/80
[2020-05-30] MEDS: MELATONIN 5 MG TABLET PO PRN (20:15)
[2020-05-31 03:47] VITALS: BP 125/76
[2020-05-31 08:02] VITALS: BP 119/82
[2020-05-31] MEDS: NICOTINE 21 MG/24 HOUR PATCH TD SCH (08:17)
[2020-05-31] MEDS: ARIPiprazole 15 MG TABLET PO SCH (08:18)
[2020-05-31 16:07] VITALS: BP 138/76
[2020-06-01 00:44] VITALS: BP 123/76
[2020-06-01 08:22] VITALS: BP 104/64
[2020-06-01] MEDS: ARIPiprazole 15 MG TABLET PO SCH (08:31)
[2020-06-01] MEDS: NICOTINE 21 MG/24 HOUR PATCH TD SCH (08:31)
[2020-06-02 00:29] VITALS: BP 105/76
[2020-06-02 08:27] VITALS: BP 130/69
[2020-06-02] MEDS: ARIPiprazole 15 MG TABLET PO SCH (08:29)
[2020-06-02] MEDS: NICOTINE 21 MG/24 HOUR PATCH TD SCH (08:29)
[2020-06-02] MEDS: ALBUTEROL SULFATE HFA 90 MCG/PUFF 8 GM INHALER IH PRN (13:32)
[2020-06-02 16:08] VITALS: BP 122/74
[2020-06-03] MEDS: MELATONIN 5 MG TABLET PO PRN ×2 (00:19→20:53)
[2020-06-03 01:05] VITALS: BP 115/72
[2020-06-03] MEDS: NICOTINE 21 MG/24 HOUR PATCH TD SCH (07:56)
[2020-06-03] MEDS: ARIPiprazole 15 MG TABLET PO SCH (07:58)
[2020-06-03 08:36] VITALS: BP 109/61
[2020-06-03 17:26] VITALS: BP 116/69
[2020-06-03] MEDS: HALOPERIDOL 5 MG TABLET PO PRN (20:53)
[2020-06-04 04:43] VITALS: BP 129/90
[2020-06-04] MEDS: ARIPiprazole 15 MG TABLET PO SCH (07:46)
[2020-06-04] MEDS: NICOTINE 21 MG/24 HOUR PATCH TD SCH (07:47)
[2020-06-04 08:22] VITALS: BP 105/69
[2020-06-04] MEDS: HALOPERIDOL 5 MG TABLET PO PRN (09:32)
[2020-06-04] MEDS: ALBUTEROL SULFATE HFA 90 MCG/PUFF 8 GM INHALER IH PRN (11:07)
[2020-06-04 16:58] VITALS: BP 136/68
[2020-06-04] MEDS: MELATONIN 5 MG TABLET PO PRN (21:33)
[2020-06-05 04:45] VITALS: BP 102/57
[2020-06-05] MEDS: ARIPiprazole 15 MG TABLET PO SCH (07:56)
[2020-06-05] MEDS: NICOTINE 21 MG/24 HOUR PATCH TD SCH (07:56)
[2020-06-05 08:34] VITALS: BP 101/58
[2020-06-05 16:12] VITALS: BP 119/78
[2020-06-05] MEDS: ALBUTEROL SULFATE HFA 90 MCG/PUFF 8 GM INHALER IH PRN (19:04)
[2020-06-06 01:11] VITALS: BP 110/73
[2020-06-06 08:35] VITALS: BP 119/74
[2020-06-06] MEDS: LITHIUM CARBONATE 300 MG CAPSULE PO SCH ×2 (08:45→16:23)
[2020-06-06] MEDS: ARIPiprazole 15 MG TABLET PO SCH (08:45)
[2020-06-06] MEDS: NICOTINE 21 MG/24 HOUR PATCH TD SCH (08:45)
[2020-06-06] MEDS: ALBUTEROL SULFATE HFA 90 MCG/PUFF 8 GM INHALER IH PRN ×2 (09:38→16:25)
[2020-06-06 16:10] VITALS: BP 107/72
[2020-06-07 02:53] VITALS: BP 100/80
[2020-06-07] MEDS: LITHIUM CARBONATE 300 MG CAPSULE PO SCH ×2 (08:01→17:42)
[2020-06-07] MEDS: ARIPiprazole 15 MG TABLET PO SCH (08:02)
[2020-06-07] MEDS: NICOTINE 21 MG/24 HOUR PATCH TD SCH (08:02)
[2020-06-07 08:17] VITALS: BP 114/68
[2020-06-07] MEDS: ALBUTEROL SULFATE HFA 90 MCG/PUFF 8 GM INHALER IH PRN (09:01)
[2020-06-07 16:13] VITALS: BP 106/71
[2020-06-08 01:00] VITALS: BP 104/77
[2020-06-08] MEDS: NICOTINE 21 MG/24 HOUR PATCH TD SCH (08:11)
[2020-06-08] MEDS: ARIPiprazole 15 MG TABLET PO SCH (08:11)
[2020-06-08 08:24] VITALS: BP 107/59
[2020-06-08] MEDS: LITHIUM CARBONATE 300 MG CAPSULE PO SCH ×2 (08:26→16:32)
[2020-06-08] MEDS: ALBUTEROL SULFATE HFA 90 MCG/PUFF 8 GM INHALER IH PRN ×2 (09:19→16:32)
[2020-06-08 16:33] VITALS: BP 111/62
[2020-06-08] MEDS: MELATONIN 5 MG TABLET PO PRN (20:26)
[2020-06-09 04:10] VITALS: BP 118/70
[2020-06-09] MEDS: LITHIUM CARBONATE 300 MG CAPSULE PO SCH ×2 (08:00→16:33)
[2020-06-09] MEDS: ARIPiprazole 15 MG TABLET PO SCH (08:00)
[2020-06-09 08:23] VITALS: BP 110/56
[2020-06-09] MEDS: NICOTINE 21 MG/24 HOUR PATCH TD SCH (09:00)
[2020-06-09 16:22] VITALS: BP 112/66
[2020-06-10 03:54] VITALS: BP 110/68
[2020-06-10 07:34] LABS: BAND NEUTROPHILS % (MANUAL) 0 % (0-5)
[2020-06-10 08:01] LABS: LITHIUM 0.21 mmol/L (0.60-1.20)
[2020-06-10 08:16] LABS: ANION GAP 6 mmol/L (8-16); CALCIUM, TOTAL 8.8 mg/dL (8.8-10.5); CARBON DIOXIDE 26 mmol/L (22-29); CHLORIDE 102 mmol/L (98-107); CHOL/HDL RATIO 2.5 (3.9-5.7); CHOLESTEROL 163 mg/dL (131-200); CREATININE 0.93 mg/dL (0.60-1.30); GLOMERULAR FILTR. RATE CALC > 60 mL/min (>60); GLUCOSE,RANDOM 116 mg/dL (70-110); HDL CHOLESTEROL 66 mg/dL (40-60); LDL CHOL (CALC.) 85 mg/dL (0-130); PHOSPHORUS 2.9 mg/dL (2.5-4.9); POTASSIUM 3.8 mmol/L (3.5-5.1); SODIUM SERUM 134 mmol/L (136-145); THYROID STIMULATING HORMONE 1.15 uIU/mL (0.36-3.74); TRIGLYCERIDES 62 mg/dL (15-150); UREA NITROGEN, BLOOD 19 mg/dL (7-18)
[2020-06-10 08:19] LABS: HEMOGLOBIN A1C 4.7 % (3.8-5.6)
[2020-06-10] MEDS: ARIPiprazole 15 MG TABLET PO SCH (08:22)
[2020-06-10] MEDS: LITHIUM CARBONATE 300 MG CAPSULE PO SCH ×2 (08:22→16:11)
[2020-06-10 08:43] VITALS: BP 109/54
[2020-06-10 10:30] LABS: EOSINOPHILS % (MANUAL) 1 % (1-6); LYMPHOCYTES % (MANUAL) 31 % (22-44); MONOCYTES % (MANUAL) 6 % (2-9); SEGMENTED NEUTROPHILS % 62 % (40-70)
[2020-06-10 10:42] LABS: HEMATOCRIT 41.5 % (36-46); HEMOGLOBIN 14.2 g/dL (12.0-16.0); MEAN CORPUSCULAR HEMOGLOBIN 31.1 pg (26.0-34.0); MEAN CORPUSCULAR HGB CONC 34.3 G/dL (31.0-37.0); MEAN CORPUSCULAR VOLUME 91 fL (80-100); PLATELET COUNT (AUTO) 221 K/uL (150-450); RED BLOOD CELL COUNT(AUTO) 4.57 MIL/uL (4.00-5.20); RED CELL DISTRIBUTION WIDTH 12.3 % (11.5-14.5)
[2020-06-10] MEDS: ALBUTEROL SULFATE HFA 90 MCG/PUFF 8 GM INHALER IH PRN (16:12)
[2020-06-10 19:46] VITALS: BP 109/88
[2020-06-10] MEDS: MELATONIN 5 MG TABLET PO PRN (22:29)
[2020-06-11 01:59] VITALS: BP 103/84
[2020-06-11 08:29] VITALS: BP 141/69
[2020-06-11] MEDS: LITHIUM CARBONATE 300 MG CAPSULE PO SCH (08:58)
[2020-06-11] MEDS: ARIPiprazole 15 MG TABLET PO SCH (08:58)
[2020-06-11] MEDS: NICOTINE 21 MG/24 HOUR PATCH TD PRN (09:40)
[2020-06-11 16:11] VITALS: BP 126/80
[2020-06-11] MEDS ORDERED: LORazepam 2 MG/ML VIAL IM ONE (19:45)
[2020-06-11] MEDS ORDERED: HALOPERIDOL LACTATE 5 MG/ML VIAL IM ONE (19:45)
[2020-06-11] MEDS ORDERED: DiphenhydrAMINE HCL 50 MG/ML VIAL IM ONE (19:45)
[2020-06-11] MEDS: LITHIUM CITRATE SOLUTION 8 MEQ/5 ML [8 MEQ = 300 MG] UDCUP PO SCH (21:47)
[2020-06-12 08:19] VITALS: BP 119/68
[2020-06-12] MEDS: LITHIUM CITRATE SOLUTION 8 MEQ/5 ML [8 MEQ = 300 MG] UDCUP PO SCH ×2 (09:22→16:21)
[2020-06-12] MEDS: NICOTINE 21 MG/24 HOUR PATCH TD PRN (09:22)
[2020-06-12] MEDS: ARIPiprazole 15 MG TABLET PO SCH (09:22)
[2020-06-12 16:12] VITALS: BP 122/74
[2020-06-13 03:55] VITALS: BP 116/72
[2020-06-13] MEDS: LITHIUM CITRATE SOLUTION 8 MEQ/5 ML [8 MEQ = 300 MG] UDCUP PO SCH ×2 (07:55→16:14)
[2020-06-13] MEDS: ARIPiprazole 15 MG TABLET PO SCH (07:55)
[2020-06-13] MEDS: NICOTINE 21 MG/24 HOUR PATCH TD PRN (07:59)
[2020-06-13 08:13] VITALS: BP 108/61
[2020-06-13 16:15] VITALS: BP 120/78
[2020-06-13] MEDS: MELATONIN 5 MG TABLET PO PRN (22:08)
[2020-06-14 03:34] VITALS: BP 118/91
[2020-06-14] MEDS: LITHIUM CITRATE SOLUTION 8 MEQ/5 ML [8 MEQ = 300 MG] UDCUP PO SCH ×2 (08:14→16:33)
[2020-06-14] MEDS: ARIPiprazole 15 MG TABLET PO SCH (08:15)
[2020-06-14] MEDS: NICOTINE 21 MG/24 HOUR PATCH TD PRN (08:15)
[2020-06-14 08:28] VITALS: BP 105/55
[2020-06-14 16:08] VITALS: BP 112/68
[2020-06-14] MEDS: ALBUTEROL SULFATE HFA 90 MCG/PUFF 8 GM INHALER IH PRN (19:37)
[2020-06-14] MEDS: MELATONIN 5 MG TABLET PO PRN (20:10)
[2020-06-15 03:43] VITALS: BP 116/67
[2020-06-15] MEDS: ARIPiprazole 15 MG TABLET PO SCH (08:04)
[2020-06-15] MEDS: NICOTINE 21 MG/24 HOUR PATCH TD PRN (08:05)
[2020-06-15] MEDS: LITHIUM CITRATE SOLUTION 8 MEQ/5 ML [8 MEQ = 300 MG] UDCUP PO SCH ×2 (08:06→19:07)
[2020-06-15 08:18] VITALS: BP 113/72
[2020-06-15] MEDS ORDERED: HALOPERIDOL LACTATE 5 MG/ML VIAL IM PRN (08:30)
[2020-06-15] MEDS: MELATONIN 5 MG TABLET PO PRN (20:21)
[2020-06-16 06:23] VITALS: BP 98/65
[2020-06-16 08:19] VITALS: BP 114/79
[2020-06-16] MEDS: LITHIUM CITRATE SOLUTION 8 MEQ/5 ML [8 MEQ = 300 MG] UDCUP PO SCH ×2 (08:42→16:10)
[2020-06-16] MEDS: HALOPERIDOL 5 MG TABLET PO PRN ×2 (08:42→10:30)
[2020-06-16] MEDS: ARIPiprazole 15 MG TABLET PO SCH (08:43)
[2020-06-16 16:11] VITALS: BP 113/71
[2020-06-16] MEDS: MELATONIN 5 MG TABLET PO PRN (20:27)
[2020-06-17 00:29] VITALS: BP 107/69
[2020-06-17] MEDS: ARIPiprazole 15 MG TABLET PO SCH (08:48)
[2020-06-17] MEDS: LITHIUM CITRATE SOLUTION 8 MEQ/5 ML [8 MEQ = 300 MG] UDCUP PO SCH ×2 (08:51→16:26)
[2020-06-17 09:54] VITALS: BP 111/74
[2020-06-17] MEDS: NICOTINE 21 MG/24 HOUR PATCH TD PRN (10:08)
[2020-06-17 16:20] VITALS: BP 104/75
[2020-06-18 04:02] VITALS: BP 110/68
[2020-06-18 08:18] VITALS: BP 106/62
[2020-06-18] MEDS: ARIPiprazole 15 MG TABLET PO SCH (09:01)
[2020-06-18] MEDS: LITHIUM CITRATE SOLUTION 8 MEQ/5 ML [8 MEQ = 300 MG] UDCUP PO SCH ×2 (09:02→16:05)
[2020-06-19 02:06] VITALS: BP 100/73
[2020-06-19 08:28] VITALS: BP 105/64
[2020-06-19] MEDS: HALOPERIDOL 5 MG TABLET PO PRN (09:27)
[2020-06-19] MEDS: ARIPiprazole 15 MG TABLET PO SCH (09:27)
[2020-06-19] MEDS: ALBUTEROL SULFATE HFA 90 MCG/PUFF 8 GM INHALER IH PRN ×2 (09:37→16:24)
[2020-06-19] MEDS: LITHIUM CARBONATE 300 MG CAPSULE PO SCH ×2 (11:42→16:24)
[2020-06-19 16:14] VITALS: BP 101/71
[2020-06-19] MEDS: MELATONIN 5 MG TABLET PO PRN (20:17)
[2020-06-20 01:09] VITALS: BP 104/76
[2020-06-20 08:15] VITALS: BP 99/62
[2020-06-20] MEDS: ARIPiprazole 15 MG TABLET PO SCH (08:15)
[2020-06-20] MEDS: LITHIUM CARBONATE 300 MG CAPSULE PO SCH ×2 (08:15→16:35)
[2020-06-20] MEDS: NICOTINE 21 MG/24 HOUR PATCH TD PRN (08:31)
[2020-06-20] MEDS: ALBUTEROL SULFATE HFA 90 MCG/PUFF 8 GM INHALER IH PRN (13:09)
[2020-06-20 16:19] VITALS: BP 115/76
[2020-06-21 04:39] VITALS: BP 120/72
[2020-06-21] MEDS: LITHIUM CARBONATE 300 MG CAPSULE PO SCH ×2 (08:06→16:04)
[2020-06-21] MEDS: ARIPiprazole 15 MG TABLET PO SCH (08:07)
[2020-06-21 08:22] VITALS: BP 102/61
[2020-06-21] MEDS: ALBUTEROL SULFATE HFA 90 MCG/PUFF 8 GM INHALER IH PRN (08:43)
[2020-06-21] MEDS: NICOTINE 21 MG/24 HOUR PATCH TD PRN (08:43)
[2020-06-21 16:16] VITALS: BP 113/70
[2020-06-22 01:23] VITALS: BP 111/76
[2020-06-22] MEDS: LITHIUM CARBONATE 300 MG CAPSULE PO SCH ×2 (08:03→16:32)
[2020-06-22] MEDS: ARIPiprazole 15 MG TABLET PO SCH (08:03)
[2020-06-22] MEDS: NICOTINE 21 MG/24 HOUR PATCH TD PRN (08:04)
[2020-06-22 08:14] VITALS: BP 117/70
[2020-06-22 16:11] VITALS: BP 139/79
[2020-06-22] MEDS: HALOPERIDOL 5 MG TABLET PO PRN (18:19)
[2020-06-23] VITALS: BP 114/72
[2020-06-23 08:16] VITALS: BP 100/74
[2020-06-23] MEDS: NICOTINE 21 MG/24 HOUR PATCH TD PRN (08:26)
[2020-06-23] MEDS: LITHIUM CARBONATE 300 MG CAPSULE PO SCH ×2 (08:35→16:01)
[2020-06-23] MEDS: ARIPiprazole 15 MG TABLET PO SCH (08:35)
[2020-06-23] MEDS: ALBUTEROL SULFATE HFA 90 MCG/PUFF 8 GM INHALER IH PRN (13:40)
[2020-06-23 16:29] VITALS: BP 112/59
[2020-06-23] MEDS: MELATONIN 5 MG TABLET PO PRN (20:03)
[2020-06-24 03:58] VITALS: BP 109/69
[2020-06-24] MEDS: LITHIUM CARBONATE 300 MG CAPSULE PO SCH ×2 (08:07→16:12)
[2020-06-24] MEDS: NICOTINE 21 MG/24 HOUR PATCH TD PRN (08:07)
[2020-06-24] MEDS: ARIPiprazole 15 MG TABLET PO SCH (08:08)
[2020-06-24 08:19] VITALS: BP 118/74
[2020-06-24] MEDS: HALOPERIDOL 5 MG TABLET PO PRN (12:42)
[2020-06-24 16:05] VITALS: BP 127/60
[2020-06-25 01:40] VITALS: BP 120/61
[2020-06-25 08:08] VITALS: BP 119/62
[2020-06-25] MEDS: LITHIUM CARBONATE 300 MG CAPSULE PO SCH ×2 (08:30→16:21)
[2020-06-25] MEDS: ARIPiprazole 15 MG TABLET PO SCH (08:30)
[2020-06-25] MEDS: NICOTINE 21 MG/24 HOUR PATCH TD PRN (10:49)
[2020-06-25 16:15] VITALS: BP 110/60
[2020-06-26 01:39] VITALS: BP 102/74
[2020-06-26 08:29] VITALS: BP 112/70
[2020-06-26] MEDS: ARIPiprazole 15 MG TABLET PO SCH (08:52)
[2020-06-26] MEDS: LITHIUM CARBONATE 300 MG CAPSULE PO SCH ×2 (08:52→18:04)
[2020-06-26 16:14] VITALS: BP 113/77
[2020-06-27 01:07] VITALS: BP 120/79
[2020-06-27] MEDS: ARIPiprazole 15 MG TABLET PO SCH (08:32)
[2020-06-27] MEDS: LITHIUM CARBONATE 300 MG CAPSULE PO SCH ×2 (08:32→17:19)
[2020-06-27 09:06] VITALS: BP 116/65
[2020-06-27 16:16] VITALS: BP 104/66
[2020-06-28 04:17] VITALS: BP 101/69
[2020-06-28] MEDS ORDERED: LITH300C3 PO (08:02)
[2020-06-28] MEDS: ARIPiprazole 15 MG TABLET PO SCH (08:23)
[2020-06-28] MEDS: NICOTINE 21 MG/24 HOUR PATCH TD PRN (08:23)
[2020-06-28] MEDS: LITHIUM CARBONATE 300 MG CAPSULE PO SCH (08:24)
[2020-06-28 08:33] VITALS: BP 108/68
== END 2020-06-28 16:00 | DRG 750 ==
LOC: B3A 12:24
PROVIDERS: ADMIT Psychiatry & Neurology Child & Adolescent Psychiatry; ATTEND Psychiatry & Neurology Psychiatry
DX: F25.1 Schizoaffective disorder, depressive type (principal); E44.1 Mild protein-calorie malnutrition; F23 Brief psychotic disorder; F31.9 Bipolar disorder, unspecified; F41.9 Anxiety disorder, unspecified; K59.00 Constipation, unspecified; Z20.828 Contact with and (suspected) exposure to other viral communicable diseases; Z59.0 Homelessness; Z68.31 Body mass index [BMI] 31.0-31.9, adult; Z88.8 Allergy status to other drugs, medicaments and biological substances; Z72.0 Tobacco use; Z79.899 Other long term (current) drug therapy
CPT/HCPCS: 80307; 83036; 83735; 84100; 84439; 84443; 85007; 87081; 87426; J1200; J1630; J2060; J3535